=== PATIENT | male | born 1990 | race Caucasian/White ===

== ENCOUNTER 2021-10-28 11:39 | Emergency (ER) | payer OTHER ==
[~2021-10-28 11:39] MED LIST: ASPIRIN CHEWABL81 MG PO; AZITHROMYCIN250 MG PO; NITROGLYCERIN0.4 MG PO; PREDNISONE 20MG20 MG PO; PROAIR HFA8.5 GM INH; TESSALON PERLE100 M1 PO
== END 2021-10-28 13:37 | disposition home or self-care (01) ==
LOC: FER 11:39
DX: S61.211A Laceration without foreign body of left index finger without damage to nail, initial encounter (principal); Z23 Encounter for immunization; W26.0XXA Contact with knife, initial encounter; Y92.89 Other specified places as the place of occurrence of the external cause; Y99.0 Civilian activity done for income or pay
CPT/HCPCS: 90471; 90715